=== PATIENT | female | born 1985 | race Caucasian/White ===

== ENCOUNTER → 2023-07-29 | Outpatient (CLI) | payer OTHER ==
[~2023-07-29] VITALS: Ht 175.3 cm; Wt 155.7 kg
[~2023-07-29] MED LIST: ALBUTEROL SULFATE 2.5MG/0.5ML INH NEB SOLN INH PRN; EPINEPHrine INJ 1 MG/ML 1ML AMP IM PRN; IRON SUCROSE 300 MG in NS 250 ML OVER 90 MIN. IV ONE; NS 1,000 ML IV SCH; diphenhydrAMINE 50MG/ML VIAL IV PRN; methylPREDNISolone 125MG 2ML VIAL IV PRN
[2023-07-29 13:25] VITALS: BP 152/66; O2SAT 98
[2023-07-29 15:21] VITALS: BP 132/69; O2SAT 96
== END ==
LOC: M INFU 13:09
PROVIDERS: ATTEND Obstetrics & Gynecology
DX: D50.9 Iron deficiency anemia, unspecified (principal)
CPT/HCPCS: 96365; 96366; J1756

== ENCOUNTER 2023-08-13 14:00 | Outpatient (CLI) | payer OTHER ==
[~2023-08-13] VITALS: Ht 175.3 cm; Wt 157.7 kg
[2023-08-13 14:14] VITALS: BP 137/79; O2SAT 95
[2023-08-13 16:45] VITALS: BP 137/87; O2SAT 99
[2023-08-18] MEDS ORDERED: ASPI81TA26 PO (14:32)
[2023-08-18] MEDS ORDERED: BENA25CA4 PO (14:32)
== END 2023-08-13 16:45 | disposition home or self-care (01) ==
LOC: M INFU 14:00 → EDUNIT# 14:00 → M INFU 16:45
PROVIDERS: ATTEND Obstetrics & Gynecology
DX: D50.9 Iron deficiency anemia, unspecified (principal)
CPT/HCPCS: 96365; 96366; J1756

== ENCOUNTER 2023-08-19 14:04 | Outpatient (CLI) | payer OTHER ==
[~2023-08-19] VITALS: Ht 175.3 cm; Wt 156.3 kg
[~2023-08-19 14:04] MED LIST changes: +ASPI81TA26 PO; +BENA25CA4 PO
[2023-08-19 14:20] VITALS: BP 133/81; O2SAT 98
[2023-08-19 16:35] VITALS: BP 141/96; O2SAT 96
== END 2023-08-19 16:38 | disposition home or self-care (01) ==
LOC: M INFU 14:04
PROVIDERS: ATTEND Obstetrics & Gynecology
DX: D50.9 Iron deficiency anemia, unspecified (principal)
CPT/HCPCS: 96365; 96366; J1756

== ENCOUNTER 2023-08-23 07:35 | Inpatient (IN) | payer OTHER ==
[2023-08-23] VITALS (7 sets, daily range): BP systolic 130–163; BP diastolic 69–80; O2SAT 95–98
[~2023-08-23] VITALS: Ht 175.3 cm; Wt 155.4 kg
[~2023-08-23 07:35] MED LIST changes: -ALBUTEROL SULFATE 2.5MG/0.5ML INH NEB SOLN INH PRN; -EPINEPHrine INJ 1 MG/ML 1ML AMP IM PRN; -IRON SUCROSE 300 MG in NS 250 ML OVER 90 MIN. IV ONE; -NS 1,000 ML IV SCH; -diphenhydrAMINE 50MG/ML VIAL IV PRN; -methylPREDNISolone 125MG 2ML VIAL IV PRN
[2023-08-23] MEDS ORDERED: LACTATED RINGER'S 1000 ML IV STA (08:31)
[2023-08-23] MEDS ORDERED: LR 1,000 ML IV SCH (08:35)
[2023-08-23] MEDS ORDERED: BICITRA 30ML SOLN UDC PO ONE (08:35)
[2023-08-23] MEDS ORDERED: ceFAZolin SOD 2 GM in IV 1 EA IV ONE (08:35)
[2023-08-23] MEDS ORDERED: HOME MED LIST COMPLETE! XX SCH (08:40)
[2023-08-23 08:53] LABS: HEMATOCRIT 35.6 % (36.0-47.0); HEMOGLOBIN 11.6 g/dl (12.0-15.5); MEAN CORPUSCULAR HEMOGLOBIN 27.4 pg (27.0-33.0); MEAN CORPUSCULAR HGB CONC 32.6 g/dl (32.0-36.5); MEAN CORPUSCULAR VOLUME 84.2 fl (80.0-96.0); PLATELET COUNT, AUTOMATED 354 10^3/uL (150-450); RED BLOOD COUNT 4.23 10^6/uL (4.00-5.40); WHITE BLOOD COUNT 11.7 10^3/uL (4.0-10.0)
[2023-08-23] MEDS: PRENATAL VITAMINS CHEWABLE TABLET PO SCH (09:00)
[2023-08-23] MEDS: DOCUSATE SODIUM 100MG CAPSULE PO SCH ×2 (09:00→21:00)
[2023-08-23] MEDS ORDERED: ceFAZolin SOD 1 GM in D5W MINI-BAG PLUS 50 ML IV ONE (09:25)
[2023-08-23 09:54] LABS: URIC ACID 8.3 MG/DL (3.1-7.8)
[2023-08-23 09:56] LABS: LDH LACTATE DEHYDROGENASE 166 U/L (120-246)
[2023-08-23 09:57] LABS: ALT/SGPT 20 U/L (7.0-40); AST/SGOT 17 U/L (<34); BILIRUBIN,TOTAL 0.4 MG/DL (0.3-1.2); CREATININE FOR GFR 0.58 MG/DL (0.55-1.30); GLOMERULAR FILTRATION RATE > 60.0 (>60)
[2023-08-23] MEDS ORDERED: MORPHINE PRES-FREE INJ 10 MG/10 ML VIAL As Ordered ONE (10:11)
[2023-08-23] MEDS ORDERED: OXYTOCIN 30UNITS IN 0.9% NaCl 500ML IV BAG As Ordered ONE (10:12)
[2023-08-23] MEDS ORDERED: ONDANSETRON 4MG 2ML VIAL As Ordered ONE (10:47)
[2023-08-23] MEDS ORDERED: KETOROLAC 60MG 2ML VIAL As Ordered ONE (10:47)
[2023-08-23] MEDS ORDERED: ACETAMINOPHEN 1000MG 100ML IV BAG As Ordered ONE (10:47)
[2023-08-23] MEDS ORDERED: OXYTOCIN INJ 10UNITS/ML 1ML VIAL As Ordered ONE (11:08)
[2023-08-23] MEDS ORDERED: TRANEXAMIC ACID 100 MG/ML 10ML VIAL As Ordered ONE (11:08)
[2023-08-23] MEDS ORDERED: ePHEDrine SULFATE 25 MG/5 ML(5MG/ML) SYRINGE As Ordered ONE (11:51)
[2023-08-23] MEDS ORDERED: PHENYLephrine 500MCG 5ML (100MCG/ML) SYRINGE As Ordered ONE (11:51)
[2023-08-23] MEDS ORDERED: SIMETHICONE 80MG CHEW TAB PO PRN (12:10)
[2023-08-23] MEDS ORDERED: RHOGAM 300MCG (1500IU) INJ IM SCH (12:10)
[2023-08-23] MEDS ORDERED: METHYLERGONOVINE MALEATE 0.2 MG TAB PO PRN (12:10)
[2023-08-23] MEDS ORDERED: oxyCODONE 5MG TAB PO PRN ×2 (12:10→12:20)
[2023-08-23] MEDS ORDERED: ONDANSETRON 4MG 2ML VIAL IV PRN ×2 (12:10→12:20)
[2023-08-23] MEDS ORDERED: OXYTOCIN DRIP 30 UNITS in IV 1 EA IV SCH ×4 (12:10)
[2023-08-23] MEDS ORDERED: NALBUPHINE HCL 1MG/0.1ML (100MG/10ML) MDV IV PRN (12:10)
[2023-08-23] MEDS ORDERED: MORPHINE 2 MG/ML 1ML VIAL IV PRN (12:10)
[2023-08-23] MEDS ORDERED: METOCLOPRAMIDE INJ 10MG/2ML VIAL IV PRN ×2 (12:10→12:20)
[2023-08-23] MEDS ORDERED: MOM 30ML SUSPENSION UDC PO PRN (12:10)
[2023-08-23] MEDS ORDERED: **NOTE PATIENT COMMENT** MISC XX SCH (12:20)
[2023-08-23] MEDS ORDERED: HYDROMORPHONE HCL 0.5 MG/ 0.5 ML SYRINGE IV PRN (12:20)
[2023-08-23] MEDS ORDERED: diphenhydrAMINE 50MG/ML VIAL IV PRN (12:20)
[2023-08-23] MEDS ORDERED: MEPERIDINE 25 MG/ML 1ML VIAL IV PRN (12:20)
[2023-08-23] MEDS: SLF 3 ML SYR IV SCH ×2 (12:20→19:41)
[2023-08-23] MEDS ORDERED: NALOXONE INJ 0.4MG/1ML VIAL IV PRN ×2 (12:20)
[2023-08-23] MEDS ORDERED: fentaNYL 100 MCG/2 ML INJECTION IV PRN (12:20)
[2023-08-23] MEDS: LR 1,000 ML IV SCH ×2 (12:30→19:43)
[2023-08-23] MEDS: ACETAMINOPHEN 500 MG TAB PO SCH ×2 (17:36→22:02)
[2023-08-23] MEDS: KETOROLAC 30 MG/ML 1ML VIAL IV SCH ×2 (17:37→23:14)
[2023-08-24] VITALS (7 sets, daily range): BP systolic 98–133; BP diastolic 56–72; O2SAT 97–99
[2023-08-24] MEDS: LR 1,000 ML IV SCH (04:10)
[2023-08-24] MEDS: SLF 3 ML SYR IV SCH (04:25)
[2023-08-24] MEDS: ACETAMINOPHEN 500 MG TAB PO SCH ×3 (04:31→16:59)
[2023-08-24] MEDS: KETOROLAC 30 MG/ML 1ML VIAL IV SCH (05:55)
[2023-08-24 07:21] LABS: HEMATOCRIT 28.1 % (36.0-47.0); MEAN CORPUSCULAR HEMOGLOBIN 27.6 pg (27.0-33.0); MEAN CORPUSCULAR HGB CONC 32.4 g/dl (32.0-36.5); MEAN CORPUSCULAR VOLUME 85.2 fl (80.0-96.0); PLATELET COUNT, AUTOMATED 293 10^3/uL (150-450); WHITE BLOOD COUNT 10.8 10^3/uL (4.0-10.0)
[2023-08-24 07:25] LABS: HEMOGLOBIN 9.1 g/dl (12.0-15.5)
[2023-08-24] MEDS: PRENATAL VITAMINS CHEWABLE TABLET PO SCH ×2 (09:00→09:20)
[2023-08-24] MEDS: DOCUSATE SODIUM 100MG CAPSULE PO SCH ×3 (09:00→20:51)
[2023-08-24] MEDS: IBUPROFEN 800 MG TAB PO SCH ×2 (15:10→21:42)
[2023-08-25] MEDS: ACETAMINOPHEN 500 MG TAB PO SCH ×3 (00:05→10:18)
[2023-08-25 02:00] VITALS: BP 117/67
[2023-08-25] MEDS: oxyCODONE 5MG TAB PO PRN ×2 (05:21→11:25)
[2023-08-25 05:37] VITALS: BP 144/78
[2023-08-25] MEDS: IBUPROFEN 800 MG TAB PO SCH ×2 (05:55→13:33)
[2023-08-25] MEDS: DOCUSATE SODIUM 100MG CAPSULE PO SCH (07:11)
[2023-08-25] MEDS ORDERED: MEASLES,MUMPS,RUBELLA VACCINE INJ (MMR-II) SC.IMMUN ONE (09:00)
[2023-08-25] MEDS: PRENATAL VITAMINS CHEWABLE TABLET PO SCH (09:00)
== END 2023-08-25 15:23 | disposition home or self-care (01) | DRG 785 ==
LOC: M LDI 07:35 → EDUNIT# 09:30 → M OBS 13:28
PROVIDERS: ADMIT Obstetrics & Gynecology; ATTEND Obstetrics & Gynecology
PROC: 0UB70ZZ Excision of Bilateral Fallopian Tubes, Open Approach (ICD-10-PCS; 2023-08-23)
PROC: 10D00Z1 Extraction of Products of Conception, Low, Open Approach (ICD-10-PCS; principal; 2023-08-23 09:30)
DX: O34.211 Maternal care for low transverse scar from previous cesarean delivery (principal); Z3A.39 39 weeks gestation of pregnancy; Z79.82 Long term (current) use of aspirin; Z79.899 Other long term (current) drug therapy; Z37.0 Single live birth